=== PATIENT | female | born 1950 | race Caucasian/White ===

== ENCOUNTER 2018-05-04 16:23 | Emergency (ER) | payer MEDICARE, OTHER ==
[2018-05-04 17:27] LABS: BASOPHILS # (AUTO) 0.1 10^3/uL (0.0-0.1); BASOPHILS % (AUTO) 0.5 %; EOSINOPHILS # (AUTO) 0.1 10^3/uL (0.0-0.7); EOSINOPHILS % (AUTO) 0.9 %; HGB - HEMOGLOBIN 12.9 g/dL (12.0-16.0); LYMPHOCYTES # (AUTO) 1.1 10^3/uL (1.5-3.5); LYMPHOCYTES % (AUTO) 10.1 %; MEAN CORPUSCULAR HEMOGLOBIN 29.7 pg (27.0-31.0); MEAN CORPUSCULAR VOLUME 87.3 fL (81.0-99.0); MONOCYTES # (AUTO) 0.8 10^3/uL (0.0-1.0); MONOCYTES % (AUTO) 6.9 %; NEUTROPHILS # (AUTO) 9.1 10^3/uL (1.5-6.6); NEUTROPHILS % (AUTO) 81.6 %; PLT - PLATELET COUNT 153 10^3/uL (130-450); RED BLOOD COUNT 4.35 10^6/uL (4.20-5.40); RED CELL DISTRIBUTION WIDTH 13.5 % (12.0-15.0); WHITE BLOOD COUNT 11.2 x10^3/uL (4.8-10.8)
[2018-05-04 17:40] LABS: ALBUMIN 3.1 g/dL (3.2-5.5); ALBUMIN/GLOBULIN RATIO 0.8 (1.0-2.2); BILIRUBIN,TOTAL 1.3 mg/dL (0.2-1.0); CALCIUM 8.3 mg/dL (8.5-10.3)
[2018-05-04] MEDS ORDERED: SODIUM CHLORIDE 0.9% 1,000 ML IV ONE ×2 (17:58)
[2018-05-04] MEDS ORDERED: MORPHINE 10 MG/ML VIAL IVP STA (17:58)
--- NOTE | 2018-05-04 19:03 | CT Report ---
Reason: L flank pain, poss renal stone Procedure Date: 05/04/2018 Accession Number: [id number] / [id number] Procedure: CT - Abdomen/Pelvis W/O CPT Code: FULL RESULT: EXAM: CT ABDOMEN AND PELVIS (CT KUB) EXAM DATE: 05/04/2018 06:35 PM. CLINICAL HISTORY: Left flank pain. Concern for renal stone. COMPARISONS: None. TECHNIQUE: Routine axial helical CT imaging was performed through the abdomen and pelvis without IV contrast. Reconstructions: Coronal and sagittal. In accordance with CT protocol optimization, one or more of the following dose reduction techniques were utilized for this exam: automated exposure control, adjustment of mA and/or KV based on patient size, or use of iterative reconstructive technique. FINDINGS: Lung Bases: Unremarkable. Right Kidney/Ureter: No stones, hydronephrosis, or hydroureter. No perinephric fat stranding. Small lateral cortical cyst noted. Left Kidney/Ureter: There is an obstructing 7 x 10 x 24 mm UPJ stone with hydronephrosis, hydroureter, and perinephric fat stranding. No intrarenal stones. Other Solid Organs: Calcified granulomas noted in the spleen, otherwise the noncontrast images of the solid organs are grossly unremarkable. Gallbladder/Bile Ducts: Unremarkable. Peritoneal Cavity: No free fluid, free air or celina adenopathy. Mild diverticulosis, otherwise the bowel is grossly unremarkable. Normal appendix noted. Pelvic Organs: No bladder stones or wall thickening. Noncontrast images of the visualized pelvic organs are unremarkable. Vasculature: Unremarkable. Other: Large umbilical hernia with a neck of 8.9 cm and a cross section of 11.4 cm containing unremarkable small bowel. Multilevel degenerative lumbar disk disease and facet arthropathy noted. IMPRESSION: 1. Obstructing 7 x 10 x 24 mm left UPJ stone with hydronephrosis, hydroureter, and perinephric fat stranding. 2. Calcified granulomas noted in the spleen. 3. Large umbilical hernia containing small bowel. 4. Mild diverticulosis without diverticulitis. RADIA
--- NOTE | 2018-05-04 19:10 | ED Physician Documentation ---
PD HPI ABD PAIN - Stated complaint Stated Complaint: FEMALE - Chief complaint Chief Complaint: Abd Pain - History obtained from History obtained from: Patient, Family - History of Present Illness Timing - onset: How many days ago (3) Timing - duration: Days (3) Timing - details: Gradual onset Pain level max: 10 Pain level now: 10 Quality: Aching, Pain Location: Other (L flank) Improved by: Other (nothing) Worsened by: Moving Associated symptoms: Fever (subjective, 101), Nausea, Dysuria, Hematuria. No: Vomiting, Hematemesis, Diarrhea, Constipation Similar symptoms before: Diagnosis (Patient was diagnosed with pyelonephritis 2 days ago at [facility]. Started on ciprofloxacin but states she is not improving. Feeling worse. Now having fevers and dysuria. Increasing pain) Review of Systems Ten Systems: 10 systems reviewed and negative Constitutional: reports: Fever, Chills Ears: denies: Ear pain Nose: denies: Rhinorrhea / runny nose, Congestion Throat: denies: Sore throat Cardiac: denies: Chest pain / pressure Respiratory: denies: Cough GI: reports: Nausea. 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) - Present Medications Home Medications: Ambulatory Orders Medication Instructions Recorded Confirmed Aspirin [Aspirin EC] 81 mg PO DAILY 09/01/15 09/01/15 Atorvastatin [Lipitor] 20 mg PO DAILY 09/01/15 09/01/15 Citalopram [CeleXA] 40 mg PO DAILY 09/01/15 09/01/15 Meloxicam 15 mg PO DAILY 09/01/15 09/01/15 Rabeprazole Sodium 20 mg PO DAILY 09/01/15 09/01/15 Triamterene/Hydrochlorothiazid 1 tab PO DAILY 09/01/15 09/01/15 [Triamterene-Hctz 75-50 mg Tab] amLODIPine [Norvasc] 10 mg PO DAILY 09/01/15 09/01/15 - Allergies Allergies/Adverse Reactions: Allergies Allergy/AdvReac Type Severity Reaction Status Date / Time No Known Drug Allergies Allergy Verified 09/01/15 06:55 - Social History Does the pt smoke?: No Smoking Status: Never smoker Does the pt drink ETOH?: Yes Does the pt have substance abuse?: No - Immunizations Immunizations are current?: Yes - POLST Patient has POLST: No PD ED PE NORMAL - Vitals Vital signs reviewed: Yes - General General: Alert and oriented X 3, No acute distress, Other (obese female) - HEENT HEENT: Moist mucous membranes - Neck Neck: Supple, no meningeal sign - Cardiac Cardiac: RRR, No murmur, Strong equal pulses - Respiratory Respiratory: No respiratory distress, Clear bilaterally - Abdomen Abdomen: Soft, Non distended, Other (TTP L flank) - Back Back: Other (L CVAT) - Derm Derm: Warm and dry - Extremities Extremities: No edema - Neuro Neuro: Alert and oriented X 3 - Psych Psych: Normal mood, Normal affect Results - Vitals Vitals: Vital Signs - 24 hr 05/04/18 05/04/18 05/04/18 16:31 19:25 20:20 Temperature 36.3 C L 37.4 C Heart Rate 95 101 H 104 H Respiratory 18 24 20 Rate Blood Pressure 137/71 H 160/117 H 143/77 H O2 Saturation 96 93 85 L 05/04/18 05/04/18 05/04/18 20:22 20:48 21:11 Temperature Heart Rate 99 110 H Respiratory 18 12 Rate Blood Pressure 153/85 H 164/97 H O2 Saturation 96 98 86 L 05/04/18 05/04/18 05/04/18 21:28 22:26 23:04 Temperature 36.9 C 36.5 C Heart Rate 103 H 101 H 96 Respiratory 18 18 20 Rate Blood Pressure 138/86 H 125/84 H 129/77 O2 Saturation 95 96 96 Oxygen O2 Source Nasal cannula Oxygen Flow Rate 6 - Labs Labs: Laboratory Tests 05/04/18 05/04/18 05/04/18 17:21 17:21 17:58 WBC 11.2 H RBC 4.35 Hgb 12.9 Hct 38.0 MCV 87.3 MCH 29.7 MCHC 34.0 RDW 13.5 Plt Count 153 MPV 8.0 Neut # (Auto) 9.1 H Lymph # (Auto) 1.1 L [place] # (Auto) 0.8 Eos # (Auto) 0.1 Baso # (Auto) 0.1 Absolute Nucleated RBC 0.00 Nucleated RBC % 0.0 Sodium 136 Potassium 3.2 L Chloride 99 L Carbon Dioxide 28 Anion Gap 9.0 BUN 25 H Creatinine 2.0 H Estimated GFR (MDRD) 25 L Glucose 143 H Lactic Acid 0.9 Calcium 8.3 L Total Bilirubin 1.3 H AST 27 ALT 26 Alkaline Phosphatase 100 Total Protein 7.0 Albumin 3.1 L Globulin 3.9 Albumin/Globulin Ratio 0.8 L Lipase 23 Urine Color Urine Clarity Urine pH Ur Specific [place] Urine Protein Urine Glucose (UA) Urine Ketones Urine Occult Blood Urine Nitrite Urine Bilirubin Urine Urobilinogen Ur Leukocyte Esterase Urine RBC Urine WBC Urine WBC Clumps Ur Squamous Epith Cells Urine Bacteria Ur Microscopic Review Urine Culture Comments 05/04/18 19:32 WBC RBC Hgb Hct MCV MCH MCHC RDW Plt Count MPV Neut # (Auto) Lymph # (Auto) [place] # (Auto) Eos # (Auto) Baso # (Auto) Absolute Nucleated RBC Nucleated RBC % Sodium Potassium Chloride Carbon Dioxide Anion Gap BUN Creatinine Estimated GFR (MDRD) Glucose Lactic Acid Calcium Total Bilirubin AST ALT Alkaline Phosphatase Total Protein Albumin Globulin Albumin/Globulin Ratio Lipase Urine Color YELLOW Urine Clarity CLEAR Urine pH 6.0 Ur Specific [place] 1.020 Urine Protein 30 H Urine Glucose (UA) NEGATIVE Urine Ketones NEGATIVE Urine Occult Blood SMALL H Urine Nitrite NEGATIVE Urine Bilirubin NEGATIVE Urine Urobilinogen 0.2 (NORMAL) Ur Leukocyte Esterase SMALL H Urine RBC 6-10 H Urine WBC >25 H Urine WBC Clumps PRESENT Ur Squamous Epith Cells MANY Squamous H Urine Bacteria Many H Ur Microscopic Review INDICATED Urine Culture Comments NOT INDICATED - Rads (name of study) CT abd/pelvis Radiology: Prelim report reviewed, EMP read contemporaneously, See rad report (Obstructing 7 x 10 x 24 mm left UPJ stone with hydronephrosis, hydroureter, and perinephric fat stranding. 2. Calcified granulomas noted in the spleen. 3. Large umbilical hernia containing small bowel. 4. Mild diverticulosis without diverticulitis. ) PD MEDICAL DECISION MAKING - ED course Complexity details: reviewed results, re-evaluated patient, considered differential, d/w patient, d/w family, d/w wardrobe image consultant ED course: Patient is a 68-year-old female who presents to the emergency department with left flank pain and previously diagnosed pyelonephritis. She is on ciprofloxacin, but is not improving as expected. She is feeling worse. CT scan reveals a 7 x 10 x 24 mm stone in the left UPJ. Therefore I consulted urology at [facility], Dr. Herrera who graciously accepts in transfer. She will be transferred to the hospitalist service or Dr. Joanna Pedersen accepts. Patient will be made n.p.o. after midnight. Will be maintained on IV antibiotics, Dr. Herrera recommends 2 g of Rocephin IV daily as well as IV fluids and close monitoring. Patient transferred to [facility]. COBRA forms completed. This document was made in part using voice recognition software. While efforts are made to proofread this document, sound alike and grammatical errors may occur. - Sepsis Event Vital Signs: Vital Signs - 24 hr 05/04/18 05/04/18 05/04/18 16:31 19:25 20:20 Temperature 36.3 C L 37.4 C Heart Rate 95 101 H 104 H Respiratory 18 24 20 Rate Blood Pressure 137/71 H 160/117 H 143/77 H O2 Saturation 96 93 85 L 05/04/18 05/04/18 05/04/18 20:22 20:48 21:11 Temperature Heart Rate 99 110 H Respiratory 18 12 Rate Blood Pressure 153/85 H 164/97 H O2 Saturation 96 98 86 L 05/04/18 05/04/18 05/04/18 21:28 22:26 23:04 Temperature 36.9 C 36.5 C Heart Rate 103 H 101 H 96 Respiratory 18 18 20 Rate Blood Pressure 138/86 H 125/84 H 129/77 O2 Saturation 95 96 96 Oxygen O2 Source Nasal cannula Oxygen Flow Rate 6 Departure - Departure Disposition: 02 Transfer Acute Care Hosp Clinical Impression: Pyelonephritis, Ureteral stone Hydronephrosis Qualifiers: Hydronephrosis type: with ureteropelvic junction obstruction Qualified Code(s): Q62.11 - Congenital occlusion of ureteropelvic junction Condition: Stable Discharge Date/Time: 05/04/18 23:10
[2018-05-04 19:43] LABS: BILIRUBIN,URINE NEGATIVE (NEGATIVE); GLUCOSE, URINE (UA) NEGATIVE (NEGATIVE); KETONES,URINE (UA) NEGATIVE (NEGATIVE); LEUKOCYTE ESTERASE, URINE SMALL (NEGATIVE); NITRITE,URINE NEGATIVE (NEGATIVE); OCCULT BLOOD,URINE SMALL (NEGATIVE); PROTEIN,URINE 30 mg/dL (NEGATIVE); UROBILINOGEN,URINE 0.2 (NORMAL) E.U./dL (NORMAL)
[2018-05-04 19:44] LABS: CLARITY,URINE CLEAR (CLEAR)
[2018-05-04] MEDS ORDERED: cefTRIAXone 1 GM VIAL IVP STA ×2 (19:48→21:43)
[2018-05-04 19:51] LABS: WBC CLUMPS,URINE PRESENT
[2018-05-04 19:52] LABS: BACTERIA,URINE Many /HPF (None Seen); SQUAMOUS EPITHELIAL CELL,UR MANY Squamous (<= Few)
[2018-05-04] MEDS ORDERED: HYDROmorphone 1 MG/ML CARPUJECT IVP STA (20:49)
[2018-05-04 23:07] VITALS: BP 129/77
== END 2018-05-04 23:10 | disposition short-term general hospital (02) ==
LOC: ED 16:23
DX: N11.1 Chronic obstructive pyelonephritis (principal); N20.1 Calculus of ureter; Q62.11 Congenital occlusion of ureteropelvic junction
CPT/HCPCS: 36415; 74176; 80053; 81001; 83605; 83690; 85025; 87040; 96361; 96374; 96375; 96376; 99284; 99285; J1170; 81003; 87086

== ENCOUNTER 2018-05-04 23:18 | Outpatient (CLI) | payer MEDICARE, OTHER | END 2018-05-04 23:59 | LOC: EMS 23:18 | PROVIDERS: ATTEND Surgery | DX: R10.32 Left lower quadrant pain (principal) | CPT/HCPCS: A0425; A0428 ==

== ENCOUNTER 2022-08-07 10:26 | Outpatient (CLI) | payer MEDICARE, OTHER | END 2022-08-07 10:27 | disposition EMS.NT | LOC: EMS 10:26 | DX: R42 Dizziness and giddiness (principal) ==

== ENCOUNTER 2023-01-08 12:32 | Outpatient (CLI) | payer MEDICARE, OTHER | END 2023-01-08 12:33 | disposition critical access hospital (66) | LOC: EMS 12:32 | DX: T14.8XXA Other injury of unspecified body region, initial encounter (principal); X58.XXXA Exposure to other specified factors, initial encounter | CPT/HCPCS: A0425; A0429 ==

== ENCOUNTER 2023-01-08 12:54 | Emergency (ER) | payer MEDICARE, OTHER ==
[2023-01-08 13:17] VITALS: BP 150/82
[2023-01-08] MEDS ORDERED: TETANUS/DIPHTHERIA/PERTUSSIS 0.5 ML SYRINGE IM ONE (13:21)
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
[2023-01-08] MEDS ORDERED: TETANUS/DIPHTHERIA TOXOID 0.5 ML SYRINGE IM ONE (13:29)
[2023-01-08 13:33] LABS: BASOPHILS # (AUTO) 0.1 10^3/uL (0.0-0.1); BASOPHILS % (AUTO) 0.9 %; EOSINOPHILS # (AUTO) 0.2 10^3/uL (0.0-0.7); EOSINOPHILS % (AUTO) 3.5 %; HCT - HEMATOCRIT 43.3 % (37.0-47.0); HGB - HEMOGLOBIN 13.8 g/dL (12.0-16.0); LYMPHOCYTES % (AUTO) 19.1 %; MEAN CORPUSCULAR HEMOGLOBIN 28.9 pg (27.0-31.0); MEAN CORPUSCULAR HGB CONC 31.9 g/dL (32.0-36.0); MEAN CORPUSCULAR VOLUME 90.8 fL (81.0-99.0); MEAN PLATELET VOLUME 10.5 fL (7.9-10.8); MONOCYTES # (AUTO) 0.4 10^3/uL (0.0-1.0); MONOCYTES % (AUTO) 6.8 %; NEUTROPHILS # (AUTO) 3.8 10^3/uL (1.5-6.6); NEUTROPHILS % (AUTO) 69.1 %; PLT - PLATELET COUNT 180 10^3/uL (130-450); RED BLOOD COUNT 4.77 10^6/uL (4.20-5.40); RED CELL DISTRIBUTION WIDTH 12.3 % (12.0-15.0); WHITE BLOOD COUNT 5.4 x10^3/uL (4.8-10.8)
[2023-01-08] MEDS ORDERED: AMOX/CLAV 875 MG/125 MG TABLET PO STA (13:36)
[2023-01-08 13:50] LABS: ALBUMIN 3.8 g/dL (3.2-5.5); ALBUMIN/GLOBULIN RATIO 1.1 (1.0-2.2); CALCIUM 9.5 mg/dL (8.5-10.3); POTASSIUM 3.8 mmol/L (3.5-5.0); TOTAL PROTEIN 7.2 g/dL (6.7-8.2)
== END 2023-01-08 15:20 | disposition home or self-care (01) ==
LOC: EDUNIT# → ED 12:54
DX: H60.502 Unspecified acute noninfective otitis externa, left ear (principal); T25.322A Burn of third degree of left foot, initial encounter; T31.0 Burns involving less than 10% of body surface; T79.8XXA Other early complications of trauma, initial encounter; R73.9 Hyperglycemia, unspecified
CPT/HCPCS: 16020; 36415; 80053; 85025; 90471; 90715; 99283; 99284; A9270